=== PATIENT | female | born 1965 | race Caucasian/White ===

== ENCOUNTER → 2017-01-06 | Outpatient (CLI) | payer OTHER ==
[2017-01-06 15:56] LABS: BLOOD UREA NITROGEN 16 mg/dL (7-22); CALCIUM 9.5 mg/dL (8.7-10.7); EST GLOMERULAR FILTRATION > 60 (>60 ml/min/1.73m(2))
[2017-01-06 16:05] LABS: CHOL/HDL RATIO 3.62 RATIO (0-4.0); LDL CHOLESTEROL,CALCULATED 132.2 mg/dL
== END ==
LOC: LAB 10:43
PROVIDERS: ATTEND Physician Assistant Medical
DX: I10 Essential (primary) hypertension (principal); R73.09 Other abnormal glucose; E78.2 Mixed hyperlipidemia
CPT/HCPCS: 80053; 80061; 83036

== ENCOUNTER → 2017-03-14 | Outpatient (CLI) | payer OTHER ==
--- NOTE | 2017-03-14 15:14 | EKG ---
[facility] [place] Rate: 81 P: 0 MA: 137 QRS: -53 QRSD: 104 T: 30 QT: 371 QTc: 408 Interpretive Statements SINUS RHYTHM LEFT ANTERIOR FASCICULAR BLOCK No previous ECG available for comparison Electronically Signed On 03-14-17 17:33:56 MDT by Marc Velasco [email or web address]
== END ==
LOC: EKG 15:16
PROVIDERS: ATTEND Physician Assistant Medical
DX: R00.2 Palpitations (principal); I10 Essential (primary) hypertension; I44.7 Left bundle-branch block, unspecified
CPT/HCPCS: 93005; 93010